=== PATIENT | male | born 1945 | race Caucasian/White ===

== ENCOUNTER 2019-11-26 08:43 | Observation (INO) | payer MEDICARE ==
[2019-11-13 16:04] LABS: BASOPHILS % (AUTO) 0.5 % (0-1); EOSINOPHILS # (AUTO) 0.1 X10'3 (0-0.9); EOSINOPHILS % (AUTO) 1.1 % (0-6); LYMPHOCYTES # (AUTO) 1.2 X10'3 (1.1-4.8); LYMPHOCYTES % (AUTO) 15.7 % (21-51); MEAN CORPUSCULAR HEMOGLOBIN 30.3 PG (27.0-31.0); MEAN CORPUSCULAR HGB CONC 34.2 g/dL (33.0-36.5); MEAN CORPUSCULAR VOLUME 88.6 FL (78-98); MEAN PLATELET VOLUME 8.3 FL (7.4-10.4); MONOCYTES # (AUTO) 0.8 X10'3 (0-0.9); MONOCYTES % (AUTO) 10.4 % (2-12); NEUTROPHILS # (AUTO) 5.7 X10'3 (1.8-7.7); NEUTROPHILS % (AUTO) 72.3 % (42-75); PRE OP HEMATOCRIT 47.6 % (42.0-52.0); PRE OP HEMOGLOBIN 16.3 g/dL (14.0-17.9); PRE OP PLATELET COUNT 224 X10'3 (140-440); RED BLOOD COUNT 5.37 X10'6 (4.70-6.10); RED CELL DISTRIBUTION WIDTH 13.7 % (11.5-14.5)
[2019-11-13 16:18] LABS: ALBUMIN 3.9 G/DL (3.4-5.0); ALBUMIN/GLOBULIN RATIO 1.2 (1.1-1.5); ALKALINE PHOSPHATASE 48 IU/L (46-116); BLOOD UREA NITROGEN 17 MG/DL (7-18); BUN/CREATININE RATIO 18.3 (5.4-32.0); CALCIUM 9.3 MG/DL (8.5-10.1); CHLORIDE 106 MMOL/L (99-107); CREATININE 0.93 MG/DL (0.60-1.10); PRE OP ALT 24 U/L (30-65); PRE OP ANION GAP 6 (8-16); PRE OP AST 19 U/L (10-37); PRE OP BILIRUB, TOTAL 0.4 MG/DL (0.0-1.0); PRE OP GLUCOSE 94 MG/DL (70-104); PRE OP SODIUM 145 MMOL/L (135-145); TOTAL CARBON DIOXIDE 32.6 MMOL/L (24-32); TOTAL PROTEIN 7.1 G/DL (6.4-8.2); eGFR 79 ML/MIN
[2019-11-26] VITALS (20 sets, daily range): BP systolic 100–135; BP diastolic 58–96
[~2019-11-26] VITALS: Ht 170.2 cm; Wt 74.0 kg
[~2019-11-26 08:43] MED LIST: HYDR12.55 PO; SIMV20TA PO; [UNRECOGNIZED DRUG - CODE] PO; cefazolin/dext.iso 2gm/100ml 100 ML IV ONE; famotidine 20mg tablet PO ONE; ringers solution, lacted 1,000 ML IV SCH; tranexamic acid inj. 750 MG in normal saline 100ml IV soln 100 ML IV ONE; vancomycin inj 1,500 MG in normal saline 300ml IV soln IV ONE
[2019-11-26] MEDS ORDERED: ROPIVAcaine 0.5% (5mg/ml) 30ml vial ONE ×2 (11:01→13:45)
[2019-11-26] MEDS ORDERED: ketorolac trometh. 30mg/ml inj. ONE (11:01)
[2019-11-26] MEDS ORDERED: fentaNYL/PF 50MCG/1 ML 2ML syringe ONE (11:21)
[2019-11-26] MEDS ORDERED: MIDAZolam 5mg/5ml vial ONE (11:21)
[2019-11-26] MEDS ORDERED: diphenhydrAMINE 50 mg/ml inj ONE (11:51)
[2019-11-26] MEDS ORDERED: propofol inj 20 ML IV ONE ×2 (12:30→12:47)
[2019-11-26] MEDS ORDERED: ringers solution, lacted 1,000 ML IV SCH (13:23)
[2019-11-26] MEDS ORDERED: meperidine/PF 25mg/ml syringe IV PRN ×3 (13:25)
[2019-11-26] MEDS ORDERED: proCHLORperazine 10 MG/2 ml inj IV PRN (13:25)
[2019-11-26] MEDS ORDERED: ondansetron/PF 4mg/2ml inj IV PRN ×2 (13:25→13:45)
[2019-11-26] MEDS ORDERED: morphine 4 MG/ML inj SYRINge IV PRN (13:25)
[2019-11-26] MEDS ORDERED: morphine 2 MG/ML inj. syringe IV PRN (13:25)
[2019-11-26] MEDS ORDERED: magnesium hydroxide 30ml (MOM) UD suspension PO PRN (13:45)
[2019-11-26] MEDS ORDERED: HYDROmorphone inj. 0.5 MG/0.5 ML DISP.SYRIN IV PRN (13:45)
[2019-11-26] MEDS ORDERED: acetaminophen 325mg tablet PO PRN (13:45)
[2019-11-26] MEDS ORDERED: diphenhydrAMINE 25mg capsule PO PRN ×2 (13:45)
[2019-11-26] MEDS ORDERED: bisacodyl 10mg suppository rectal RC PRN (13:45)
[2019-11-26] MEDS ORDERED: oxyCODONE IR 5mg (immed. release) tablet PO PRN (13:45)
[2019-11-26] MEDS ORDERED: HYDROmorphone 1 mg/ml syringe IV PRN (13:45)
--- NOTE | 2019-11-26 14:25 | NUR ---
Received from OR via BED, accompanied by Anesthesiologist DR CLEANING and report given by Anesthesiologist. PT DROWSY, DENIES PAIN, LEFT KNEE W/DRSG, ICE PACK, LEG WRAP, CORINNE ISSA W/GREEN LIGHT ILLUMINATION, ACB CATHETER, RIVERA CATHETER TO GRAVITY DRAINAGE W/YELLOW URINE IN DRAINAGE BAG. Addendum: 11/26/19 at 1452 by Juliet Narayan RN Amended: Links added.
[2019-11-26] MEDS ORDERED: ROPIVAcaine 0.2%/PF PUMP/bolus 550 ML ADDCANAL SCH (14:30)
[2019-11-26] MEDS ORDERED: ROPIVAcaine 0.2% (10 MG/5 ML) BOLUS INJECTION ADDCANAL PRN (14:30)
[2019-11-26] MEDS ORDERED: tranexamic acid inj. 700 MG in normal saline 100ml IV soln 100 ML IV ONE ×2 (15:00→17:25)
--- NOTE | 2019-11-26 15:55 | NUR ---
Report called to receiving nurse. Transferred via BED W/1 BAG OF Belongings, RECEIVING RN AT BEDSIDE TO RECEIVE PT, BLL, CALL LIGHT GIVEN, SIDE RAILS UP X 2. Special Issues communicated to receiving nurse. YES. Addendum: 11/26/19 at 1642 by Juliet Narayan RN Amended: Links added.
[2019-11-26] MEDS: acetaminophen 325mg tablet PO SCH ×2 (16:12→20:09)
[2019-11-26] MEDS: ceFAZolin 1GM/D5W- ADD-VANTAGE 50 ML IV SCH (16:16)
--- NOTE | 2019-11-26 18:00 | NUR ---
RECEIVED REPORT FROM TATIANA AGARWAL AND ASSUMED PATIENT CARE
--- NOTE | 2019-11-26 18:28 | NUR ---
GAVE REPORT TO STEFANO BROWN
[2019-11-26] MEDS ORDERED: vancomycin/NS 1 GM ADD-VANTAGE 250 ML IV SCH (20:00)
[2019-11-26] MEDS: potassium cl 20mEq in 1/2 NS 1,000 ML IV SCH (20:09)
[2019-11-26] MEDS ORDERED: sennosides 8.6mg tablet PO SCH (21:00)
[2019-11-27] MEDS: ceFAZolin 1GM/D5W- ADD-VANTAGE 50 ML IV SCH (00:38)
[2019-11-27 02:00] VITALS: BP 132/70
[2019-11-27] MEDS: acetaminophen 325mg tablet PO SCH ×2 (02:00→08:25)
[2019-11-27] MEDS: oxyCODONE IR 5mg (immed. release) tablet PO PRN ×2 (04:42→08:25)
[2019-11-27] MEDS: potassium cl 20mEq in 1/2 NS 1,000 ML IV SCH ×2 (04:44→05:45)
[2019-11-27 06:10] VITALS: BP 131/74
--- NOTE | 2019-11-27 06:19 | NUR ---
Patient in room [facility]TH[facility] 4022. I have received report from Brianna AGARWAL and had the opportunity to ask questions and assume patient care.
[2019-11-27 06:21] LABS: BASOPHILS % (AUTO) 0.1 % (0-1); EOSINOPHILS % (AUTO) 0 % (0-6); HEMOGLOBIN 13.5 g/dl (14.0-17.9); LYMPHOCYTES # (AUTO) 0.6 X10'3 (1.1-4.8); LYMPHOCYTES % (AUTO) 4.1 % (21-51); MEAN CORPUSCULAR HEMOGLOBIN 29.9 PG (27.0-31.0); MEAN CORPUSCULAR HGB CONC 33.7 g/dL (33.0-36.5); MEAN CORPUSCULAR VOLUME 88.7 FL (78-98); MEAN PLATELET VOLUME 8.4 FL (7.4-10.4); MONOCYTES % (AUTO) 7.4 % (2-12); NEUTROPHILS # (AUTO) 12.4 X10'3 (1.8-7.7); NEUTROPHILS % (AUTO) 88.4 % (42-75); PLATELET COUNT 185 X10'3 (140-440); RED BLOOD COUNT 4.51 X10'6 (4.70-6.10); RED CELL DISTRIBUTION WIDTH 13.7 % (11.5-14.5)
--- NOTE | 2019-11-27 06:21 | NUR ---
REPORT GIVEN TO KULDIP AGARWAL
[2019-11-27 06:26] LABS: ANION GAP 6 (8-16); CHLORIDE 111 MMOL/L (99-107); POTASSIUM 4.3 MMOL/L (3.5-5.1); SODIUM 144 MMOL/L (135-145); TOTAL CARBON DIOXIDE 27.3 MMOL/L (24-32)
[2019-11-27] MEDS ORDERED: aspirin 325mg tablet PO SCH (08:30)
[2019-11-28] MEDS ORDERED: acetaminophen 325mg tablet PO PRN (13:45)
--- NOTE | 2019-11-29 15:25 | NUR ---
Case management DC follow up: spoke to pt via telephone. reports doing "really good". Assured [facility] has been there, PT as well. 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 No s/s infection noted, ambulating w/walker. Denies, cp, emergent general pain, SOB at rest, resp distress, NV, dizziness, abd pain, SALAZAR, blurry vision. verbalizes understanding of s/s that would warrant 9-11/ER visit for evaluation. acknowledges need to follow up w/PCP. verbalizes understanding of meds & why prescribed, taking as ordered, no ase noted r/t polypharmacy. needs met, questions answered at DC, no further questions at this time. Needs met, questions answered at DC, no further questions at this time.
== END 2019-11-27 11:25 | disposition home or self-care (01) ==
LOC: INTOOBSV 08:43 → PAS IN 08:43 → EDSTATUS 10:45 → ORTHO 4S 13:20 → PAS IN 15:06 → ORTHO 4S 15:50
PROVIDERS: ADMIT Orthopaedic Surgery; ATTEND Orthopaedic Surgery
DX: M17.12 Unilateral primary osteoarthritis, left knee (principal); I10 Essential (primary) hypertension; E78.5 Hyperlipidemia, unspecified
CPT/HCPCS: 20985; 27447; 36415; 80051; 80053; 82948; 85025; 85610; 85730; 87081; 96365; 96366; 96367; 97110; 97116; 97162; 97530; A6454; C1713; C1758; C1776; G0378; J0690; J1200; J1885; J2250; J2704; J2795; J3010; J3370; J7120; A4215; A7000; J3480

== ENCOUNTER 2023-12-19 09:22 | Day surgery (SDC) | payer MEDICARE ==
[~2023-12-19] VITALS: Ht 170.2 cm; Wt 68.1 kg
[2023-12-19] VITALS (11 sets, daily range): BP systolic 113–149; BP diastolic 51–79; PULSE 62–89; RESP 11–20; TEMP 97.2; O2SAT 95–100
[~2023-12-19 09:22] MED LIST changes: +DIPH25CA52 PO; -HYDR12.55 PO; +LIDOcaine 1% w/EPI 1:100,000 inj. MDV 50 ML VIAL ONE; +LISI1TAB51 PO; +SIMV-342 PO; -SIMV20TA PO; -[UNRECOGNIZED DRUG - CODE] PO; -cefazolin/dext.iso 2gm/100ml 100 ML IV ONE; +cocaine 4% topical solution 4ml bottle ONE; +epiNEPHrine 1 mg/ml 30ml MDV ONE; -famotidine 20mg tablet PO ONE; +mupirocin 2% ointment 22GM ONE; +oxymetazoline 15 ML nasal spray NS ONE; -ringers solution, lacted 1,000 ML IV SCH; +tranexamic acid 100mg/ml inj. ONE; -tranexamic acid inj. 750 MG in normal saline 100ml IV soln 100 ML IV ONE; -vancomycin inj 1,500 MG in normal saline 300ml IV soln IV ONE
[2023-12-19] MEDS: ringers solution, lacted 1,000 ML IV SCH (10:23)
[2023-12-19] MEDS: famotidine 20mg tablet PO ONE (10:23)
[2023-12-19] MEDS: oxymetazoline 15 ML nasal spray NS ONE (10:42)
[2023-12-19] MEDS ORDERED: dexamethasone sod phosphate 4mg/ml inj. ONE (11:20)
[2023-12-19] MEDS ORDERED: propofol inj 20 ML IV ONE (11:20)
[2023-12-19] MEDS ORDERED: LIDOcaine 1%/PF 5ML 10 MG/ML VIAL ONE (11:20)
[2023-12-19] MEDS ORDERED: ePHEDrine 50MG/ML INJ. ONE (11:20)
[2023-12-19] MEDS ORDERED: ondansetron/PF 4mg/2ml inj ONE (11:20)
[2023-12-19] MEDS: LIDOcaine 1% w/EPI 1:100,000 30ml vial (MDV) IJ ONE (11:23)
[2023-12-19] MEDS ORDERED: ondansetron/PF 4mg/2ml inj IV PRN (11:35)
[2023-12-19] MEDS ORDERED: labetalol 20mg/4ml (5mg/ml) syringe IV PRN (11:35)
[2023-12-19] MEDS ORDERED: acetaminophen 1,000mg/100ml IV 100 ML IV ONE (11:35)
[2023-12-19] MEDS ORDERED: ringers solution, lacted 1,000 ML IV SCH (11:35)
[2023-12-19] MEDS ORDERED: meperidine/PF 25mg/ml syringe IV PRN ×2 (11:35)
[2023-12-19] MEDS ORDERED: morphine 2 MG/ML inj. syringe IV PRN (11:35)
[2023-12-19] MEDS ORDERED: proCHLORperazine 10 MG/2 ml inj IV PRN (11:35)
[2023-12-19] MEDS ORDERED: hydrALAZINE 20mg/ml inj. IV PRN (11:35)
[2023-12-19] MEDS: HYDROcodone/acetaminophen 5mg/325mg tablet PO STA (12:36)
[2023-12-19] MEDS ORDERED: salt irrigation nasal spray 45 ML SPRAY NS SCH (13:00)
== END 2023-12-19 13:25 | disposition home or self-care (01) ==
LOC: PAS 09:22
PROVIDERS: ATTEND Otolaryngology
DX: J34.2 Deviated nasal septum (principal); J34.3 Hypertrophy of nasal turbinates; I10 Essential (primary) hypertension; M19.90 Unspecified osteoarthritis, unspecified site; Z87.891 Personal history of nicotine dependence; Z88.8 Allergy status to other drugs, medicaments and biological substances; Z79.899 Other long term (current) drug therapy; Z96.652 Presence of left artificial knee joint; Z96.611 Presence of right artificial shoulder joint; Z98.890 Other specified postprocedural states; Z85.828 Personal history of other malignant neoplasm of skin
CPT/HCPCS: 30140; 30520; 82948; 93005; A6402; J1100; J2405; J2704; J3490; J7030; J7120; Z7506; Z7508; Z7512; A4618; A6449; A7000; J0171

== ENCOUNTER 2024-01-25 08:54 | Emergency (ER) | payer MEDICARE ==
[~2024-01-25] VITALS: Ht 170.2 cm; Wt 70.5 kg
[~2024-01-25 08:54] MED LIST changes: -LIDOcaine 1% w/EPI 1:100,000 inj. MDV 50 ML VIAL ONE; -cocaine 4% topical solution 4ml bottle ONE; -epiNEPHrine 1 mg/ml 30ml MDV ONE; -mupirocin 2% ointment 22GM ONE; -oxymetazoline 15 ML nasal spray NS ONE; -tranexamic acid 100mg/ml inj. ONE
[2024-01-25 08:57] VITALS: BP 133/101; PULSE 101; TEMP 98; O2SAT 96
[2024-01-25 09:56] VITALS: RESP 16
[2024-01-25 10:15] LABS: BILIRUBIN,URINE NEGATIVE (Neg); CLARITY,URINE CLEAR (Clear); COLOR,URINE YELLOW (Yellow); GLUCOSE, URINE NEGATIVE (Neg); KETONES,URINE NEGATIVE (Neg); LEUKOCYTE ESTERASE ,URINE NEGATIVE (Neg); NITRITES, URINE NEGATIVE (Neg); OCCULT BLOOD,URINE TRACE-INTACT (Neg); PROTEIN,URINE NEGATIVE (Neg); UA COLLECTION TYPE FOLEY CATH; UROBILINOGEN,URINE 0.2 E.U/dL (0.2-1.0)
[2024-01-25 10:21] LABS: BACTERIA,URINE NONE SEEN /HPF (Neg); SQUAMOUS EPITHELIAL CELL,UR NONE SEEN /LPF (FEW); WBC,URINE 0-4 /HPF (0-4)
== END 2024-01-25 10:58 | disposition home or self-care (01) ==
LOC: ER 08:55
DX: R33.9 Retention of urine, unspecified (principal); R31.9 Hematuria, unspecified; Z79.899 Other long term (current) drug therapy
CPT/HCPCS: 51702; 81001; 99284; A4314; A4340; A4358

== ENCOUNTER 2025-06-19 09:10 | Outpatient (CLI) | payer MEDICARE ==
[2025-06-18 14:11] LABS: CREATININE 1.01 MG/DL (0.60-1.10); TOTAL CARBON DIOXIDE 34.3 MMOL/L (24-32); eGFR 71 ML/MIN
--- NOTE | 2025-06-19 10:42 | RADIOLOGY REPORT ---
Exam: CT CTA CAROTIDS/VERTEBRALS INDICATION: OCCLUSION AND STENOSIS OF UNSPECIFIED CAROTID ARTERY EXAM DATE: 06/19/2025 09:27 AM COMPARISON: None TECHNIQUE: CTA neck with intravenous contrast. 3D image postprocessing was performed on a dedicated workstation and images were used for interpretation and reporting. RADIATION DOSE: Angio: CTDIvol: 17 mGy, DLP: 467.6 mGy*cm FINDINGS: CTA neck: The visualized thoracic aortic arch and proximal great vessels are unremarkable. The left common, internal and external carotid arteries are within normal limits. The right common, internal and external carotid arteries are within normal limits. The cervical segments of the right and left vertebral arteries are within normal limits. The limited visualized lung apices are clear. The surrounding soft tissues and osseous structures are otherwise unremarkable. IMPRESSION: No evidence of hemodynamically significant cervical stenosis or dissection. CAROTID STENOSIS REFERENCE Distal internal carotid artery diameter as the denominator for stenosis measurement: MILD = <50% stenosis. MODERATE = 50-69% stenosis. SEVERE = 70-89% stenosis. CRITICAL = 90-99% stenosis. OCCLUDED = 100% stenosis.
== END 2025-06-19 23:59 | disposition home or self-care (01) ==
LOC: RAD 09:10
PROVIDERS: ATTEND Internal Medicine Interventional Cardiology
DX: I65.29 Occlusion and stenosis of unspecified carotid artery (principal); E78.5 Hyperlipidemia, unspecified
CPT/HCPCS: 36415; 70498; 80048; Q9967